=== PATIENT | female | born 1965 | race Caucasian/White ===

== ENCOUNTER 2022-02-06 13:30 | Outpatient (RCR) | payer MEDICAID, SELFPAY ==
--- NOTE | 2022-01-06 17:39 | PTOPEVAL ---
PHYSICAL THERAPY INITIAL EVALUATION. Thank you for referring Myra Michael to [facility].? The patient is scheduled to be seen for therapy?2x/week for 4 weeks. Please review, sign, date and return this plan of care [facility]. I agree with and certify that the following plan of care is medically necessary. Referring Physician Date Attending Provider: Jessie Aranda *PT Outpatient Evaluation Start: 01/06/22 Evaluation Information Diagnosis R ORIF Onset 10/18/21 Subjective Information Pt states she fell on 10/18/21 Query Text:As Reported By Patient/ and has surgery 2 weeks later. Family She was non weight bearing for 2 months, she used a scooter for mobility. She states 3 weeks ago being WBAT with a walking boot and a walker. Since Thursday she has been WBAT without the boot. She states 90% of her day she is moving her ankle. She ambulates into the clinic today with a wheeled walker and a shoe donned. She reports daily exercise and stretching and states she is not sure why her ankle is so tight. Self Report Pain Assessment Right Ankle(s) Reported Pain Level 3 Pain Description Aching,Burning,Tightness Lowest Pain Intensity 0 Greatest Pain Intensity 3 Lower Extremity Range of Motion Ankle/Foot Range of Motion Left Ankle Dorsiflexion With Knee Extension 12 active Ankle Dorsiflexion With Knee Extension 14 passive Ankle Dorsiflexion With Knee Flexed 20 active Ankle Plantarflexion Range of Motion - 60 active Ankle Eversion Range of Motion - Active 26 Ankle Inversion Range of Motion - Active 42 Right Ankle Dorsiflexion With Knee Extension -6 active Ankle Dorsiflexion With Knee Extension 0 passive Ankle Dorsiflexion With Knee Flexed -8 active Ankle Dorsiflexion With Knee Flexed 4 passive Ankle Plantarflexion Range of Motion - 60 active Ankle Eversion Range of Motion - Active 12 Ankle Inversion Range of Motion - Active 8 Lower Extremity Muscle Strength Testing Gross Lower Extremity Strength L ankle motion grossly 4/5 R ankle motion grossly 3/5 L single leg stance <1s R single leg stance <1s L tandem stance: 7s R tandem stance: <1s Muscle Length Testing Gastrocnemius Length (R) Moderate Tightness Palpation
--- NOTE | 2022-02-06 15:40 | PTOPEVAL ---
PHYSICAL THERAPY PROGRESS REPORT AND DISCHARGE SUMMARY. Thank you for referring Myra Michael to [facility].? The patient is to be d/c'ed from skilled therapy services at this time. Please review, sign, date and return this plan of care [facility]ER. I agree with and certify that the following plan of care is medically necessary. Referring Physician Date Attending Provider: Jessie Aranda Evaluation Information Diagnosis R ORIF Onset 10/18/21 Subjective Information Pt states she is doing pretty Query Text:As Reported By Patient/ well, she cleaned and walked Family her dog twice a few days ago and this caused her ankle to be sore the next day. She took it easy the next day and the inactivity made it sore. She states she can finally notice the swelling doing down. She states she still descends the stairs sideways when she does not have a hand rail to use. Pain Assessment Right Ankle(s) Reported Pain Level 0 Lowest Pain Intensity 0 Greatest Pain Intensity 7 Ankle/Foot Range of Motion Left Ankle Dorsiflexion With Knee Extension 12 active Ankle Dorsiflexion With Knee Extension 14 passive Ankle Dorsiflexion With Knee Flexed 20 active Ankle Plantarflexion Range of Motion - 60 Ankle Eversion Range of Motion - Active 26 Ankle Inversion Range of Motion - Active 42 Right Ankle Dorsiflexion With Knee Extension -4 active Ankle Dorsiflexion With Knee Extension 12 passive Ankle Dorsiflexion With Knee Flexed -4 active Ankle Dorsiflexion With Knee Flexed 12 passive Ankle Plantarflexion Range of Motion - 60 Ankle Eversion Range of Motion - Active 18 Ankle Inversion Range of Motion - Active 32 Lower Extremity Muscle Strength Testing Gross Lower Extremity Strength L ankle motion grossly 4+/5 R ankle motion grossly 3+/5 L single leg stance <1s R single leg stance <1s L tandem stance: 7s R tandem stance: 4s Palpation Assessment Palpation none reported Balance Assessment Assistive Devices Walker, Wheeled Comments Initially: 27s with WW 02/06/22: 11s without AD 5 Time Sit to Stand 5 Time Sit to Stand Comments Initially: 24s, without use of Query Text:Normative Data: If Greater UEs, increased lateral weight Than 15 Seconds, 74% Increase Risk for shift to the L Recurrent Falls 02/06/22: 13s, without the use of UEs,
== END 2022-02-07 08:36 | disposition home or self-care (01) ==
LOC: ANHPT 13:30
DX: Z47.89 Encounter for other orthopedic aftercare (principal)
CPT/HCPCS: 97110; 97112; 97116; 97140; 97161; 97530